=== PATIENT | male | born 1995 | race Two or more races ===

== ENCOUNTER 2022-02-06 07:24 | Day surgery (SDC) | payer OTHER ==
[~2022-02-06] VITALS: Ht 167.6 cm; Wt 77.1 kg
[~2022-02-06 07:24] MED LIST: DOVATO 50-3001 EACH
== END 2022-02-06 20:20 | disposition home or self-care (01) ==
LOC: CIR.AMB 07:24
PROVIDERS: ATTEND Colon & Rectal Surgery
DX: A63.0 Anogenital (venereal) warts (principal); K64.1 Second degree hemorrhoids; Z20.822 Contact with and (suspected) exposure to COVID-19